=== PATIENT | female | born 1970 | race Caucasian/White ===

== ENCOUNTER → 2019-10-24 06:45 | Outpatient (CLI) | payer OTHER, SELFPAY ==
--- NOTE | 2019-10-24 06:47 | CT_ITS ---
STUDY: CT ABDOMEN AND PELVIS WITHOUT CONTRAST REASON FOR EXAM: Female, 49 years old. BILAT FLANK PAIN -- ONE EPISODE GROSS HEMATURIA -- HX-KIDNEY STONES RADIATION DOSAGE (If Supplied By Facility): CTDIvol = ( 7.90 ) mGy, DLP = ( 377.06 ) mGycm TECHNIQUE: Transaxial images were obtained from the dome of the diaphragm to the symphysis pubis without oral contrast, and without intravenous contrast. Sagittal and coronal images were reconstructed. Individualized dose optimization techniques were used for this CT. COMPARISON: None. FINDINGS: The visualized lung bases are unremarkable. The visualized portions of the heart are within normal limits. There is decreased attenuation of the liver consistent with steatosis. Hepatomegaly. There are surgical clips in the gallbladder fossa consistent with a prior cholecystectomy. Normal spleen. Normal pancreas. Normal bilateral adrenal glands. Normal right kidney. There is a 5.4 mm calculus at the right ureterovesical junction. Normal left kidney. Normal visualized stomach. Normal small intestine. There are scattered colonic diverticula consistent with diverticulosis. The appendix is visualized and appears normal. Normal abdominal aorta. Normal inferior vena cava. Normal retroperitoneum. Normal urinary bladder. Focal uterine calcification most likely within a fibroid. Normal abdominal wall. Normal osseous structures. CT/Abdomen/Pelvis without Cont IMPRESSION: Hepatomegaly and diffuse fatty fixation of the liver. 5.4 mm calculus at the right ureterovesical junction. Electronically Signed: Warren Carvalho, at 14:12 EST , Service support ,
== END ==
PROVIDERS: Family Provider Nurse Practitioner Primary Care; PCP Nurse Practitioner Primary Care; Referring Provider Nurse Practitioner Adult Health; Visit Provider Nurse Practitioner Adult Health
DX: N20.1 Calculus of ureter (principal); K76.0 Fatty (change of) liver, not elsewhere classified; Z87.442 Personal history of urinary calculi
CPT/HCPCS: 74176

== ENCOUNTER 2019-11-01 05:34 | Day surgery (SDC) | payer OTHER, SELFPAY ==
[2019-11-01] VITALS (7 sets, daily range): BP systolic 138–153; BP diastolic 78–99; PULSE 63–98; RESP 16; TEMP 36.4–36.8; O2SAT 95–100; BMI 28.0
--- NOTE | 2019-11-01 | CALC_PTH ---
PATIENT: NEFTALI DURANT [place] [facility] [place][id number] AGE/SX: 49/F ROOM: RE11/01/[address]: Dr. Donovan Prado MD : 1970 BED: DIS: 11/01/2019 SPEC #: [id number] RECD: 11/01/19 13:32 STATUS: АННА SELENA #: [id number] [place]: 11/01/19 00:[address]: Donovan Prado DEPT: SURGICAL PATHOLOGY RECD BY: Isreal Barboza ENTERED: 11/01/19 13:32 SP TYPE: Calculi OTHR DR: Grace Gamboa, FURNITURE MOVER-C Tissues: CALCULI Procedures: Surgery Specimen Level I HEADER OPERATION: Cysto, ureteroscopy, laser, stent PRE-OP DIAGNOSIS: Abdominal pain TISSUE SUBMITTED: Renal calculi GROSS DIAGNOSIS Renal calculi: Fragments of stone, clinically renal calculi (gross only). SJ:fabrice 11/04/19 COMMENT If chemical analysis is requested on this specimen, please notify the laboratory. GROSS DESCRIPTION Received in fixative is one container labeled with the patient's name and designated renal calculi. The specimen consists of multiple irregular fragments of peterson-brown stone that in aggregate measure 0.3 x 0.3 x 0.1 cm. The specimen is for gross identification and saved for stone analysis if needed. / SJ:fabrice 11/01/19 CPT: 65430
[2019-11-01] MEDS: Lactated Ringers 1,000 ML 100 ML IV (06:26)
[2019-11-01] MEDS: Cefazolin 2 GM in 0.9% Normal Saline 100 ML IV (07:23)
--- NOTE | 2019-11-01 07:27 | PCM.DC.URO ---
Discharge Diet: Light diet - advance as tolerated Discharge Activity: Return to Normal Activity Call your doctor if your incision/area has: Sudden Increased Bleeding Suture Line Care: Avoid Pulling/Pushing, Avoid Pinching/Bending Catheter: Alberts to leg bag, Alberts to large bag Allergies/Adverse Reactions: Allergies amoxicillin trihydrate [From Augmentin] Allergy (Verified 11/01/19 06:15) Hives potassium clavulanate [From Augmentin] Allergy (Verified 11/01/19 06:15) Hives corn Adverse Reaction (Verified 11/01/19 06:15) Rash Medications to take at Discharge Albuterol IH (ProAir) [Proair Hfa] 1 - 2 puff INHALATION Q4H PRN PRN 04/06/15 Atenolol [Tenormin] 25 mg PO QHS 04/06/15 Levothyroxine [Synthroid] 112 mcg PO QHS 04/06/15 Loratadine [Claritin] 10 mg PO DAILY 04/06/15 Ashwaganda 1 cap PO BID 10/28/19 Plexus Multivitamin 1 tab PO BID 10/28/19 Ciprofloxacin [Cipro] 500 mg PO BID #6 tab 11/01/19 Hydrocodone/Acetaminophen [Gravelly 5-325 Tablet] 1 each PO Q4H PRN PRN 5 Days #10 tablet 11/01/19 The following prescriptions were given: Ciprofloxacin [Cipro] 500 mg PO BID #6 tab Transmission Status: Pending to [facility] Hydrocodone/Acetaminophen [Gravelly 5-325 Tablet] 1 each PO Q4H PRN PRN 5 Days #10 tablet PRN Reason: Pain Score 1-10/10 Transmission Status: Sent to [facility] Primary Care Physician: Grace Gamboa NP-C [Primary Care Provider] - Test Results: Test results from this visit will be discussed in further detail at your follow-up appointment, if applicable. Please Follow Up With: Donovan Prado MD When: please call to make an appointment.
--- NOTE | 2019-11-01 08:16 | PCM.OPRPT ---
Report of Operation Date of Procedure: 11/01/19 Pre-Operative Diagnosis: Right ureteral calculi distal Post-Operative Diagnosis: Same Surgery/Procedure Performed:: Cystoscopy, right retrograde pyelogram interpretation fluoroscopic images, balloon dilation of the right ureter, ureteroscopy laser lithotripsy of stone and stent placement on the right side. Extraction of fragments with basket. Description of Surgical Findings:: 49-year-old female was taken back to the operating room at the smooth induction of general anesthesia she was placed in dorsolithotomy position the urethra vaginal area prepped and draped in usual sterile fashion, went into the bladder with a 21 [place] rigid cystourethroscope cannulated the right ureteral orifice advanced a wire up into the kidney we could see a stone next the wire in the distal ureter I then balloon dilated the distal right ureter. I then performed a retrograde pyelogram we could see the stone in the distal right ureter. We left a wire in place I first try to go in with a semirigid ureteroscope she did have a semi-cystocele had to really angulate the ureteroscope quite steeply to try get into the ureter I was not able to get into it so I backed out and put in the balloon dilator again balloon dilated the distal ureter a second time. I then went over the wire with a flexible ureteroscope and was able to get into the ureter and found the stone in the distal ureter but given its location is can be very difficult to do a flexible ureteroscopy so I backed out the ureteroscope left the wire in place and then this time I then went with a semirigid ureteroscope was able to get in the distal ureter and then found the stone and used a 200 ?m laser fiber and laser the stone little tiny pieces and then with a basket I extracted the pieces from the ureter with basket extraction. I then left the wire in place and then over wire advanced a stent over the stent advanced up into the kidney and coiled in the kidney and bladder in good position we left a string but we trimmed the string for length and then I pulled the wire and the stent coiled in the kidney bladder good position the patient's bladder was drained and her anesthesia was reversed so we did a successful laser and extraction of the stone and stuck in the distal ureter and a stent placement along with a balloon dilation. Type of Anesthesia:: General Drains: stetn - Admit VTE Documentation VTE Present on Admission: No VTE Mechan Device Prophylaxis: SCD's
[2019-11-01] MEDS: HYDROcodone Bitartrate/Apap 5/325 Tablet PO (10:03)
== END 2019-11-01 10:45 | disposition home or self-care (01) ==
LOC: SDC 05:35 → AC 05:37
PROVIDERS: PCP Nurse Practitioner Primary Care; Referring Provider Urology; Visit Provider Urology
PROC: 0TJ98ZZ Inspection of Ureter, Via Natural or Artificial Opening Endoscopic (ICD-10-PCS; CPT 52352; principal; 2019-11-01 07:20)
DX: N20.1 Calculus of ureter (principal); N39.41 Urge incontinence; N81.10 Cystocele, unspecified; I15.9 Secondary hypertension, unspecified; J45.20 Mild intermittent asthma, uncomplicated; E06.9 Thyroiditis, unspecified; K21.9 Gastro-esophageal reflux disease without esophagitis; Z87.442 Personal history of urinary calculi
CPT/HCPCS: 00873; 52356; 76000; 88300; J7120; C1769; C2617; J2405

== ENCOUNTER → 2024-12-20 | Outpatient (CLI) | payer BC, SELFPAY ==
--- NOTE | 2024-12-20 06:54 | CT_ITS ---
EXAM: CT Chest Without Intravenous Contrast CLINICAL INDICATION: TREE-IN-BUD PATTERN, RIGHT HILAR ADENOPATHY, SOB TECHNIQUE: Axial computed tomography images of the chest without intravenous contrast. This CT exam was performed using one or more of the following dose reduction techniques: automated exposure control, adjustment of the mA and/or kV according to patient size, and/or use of iterative reconstruction technique. COMPARISON: CT Chest dated 10/12/2024 FINDINGS: LUNGS AND PLEURAL SPACES: Mild bilateral apical scarring. Mild lung emphysema. No consolidation. No pneumothorax. No significant effusion. HEART: Unremarkable. No cardiomegaly. No significant pericardial effusion. No significant coronary artery calcifications. MEDIASTINUM: A few prominent mediastinal lymph nodes measuring up to 6 mm. BONES/JOINTS: Unremarkable. No acute fracture. No dislocation. SOFT TISSUES: Unremarkable. VASCULATURE: Unremarkable. No thoracic aortic aneurysm. LYMPH NODES: Previously noted tree-in-bud opacities of the right lung has nearly resolved since the prior exam. Hilar lymphadenopathy can not be accurately assessed without IV contrast. LIVER: Fatty liver. GALLBLADDER AND BILE DUCTS: Cholecystectomy. CT/Chest without Contrast IMPRESSION: Previously noted tree-in-bud opacities of the right lung has nearly resolved si nce the prior exam. Hilar lymphadenopathy can not be accurately assessed without IV contrast. Reading Location: [facility]
== END | disposition home or self-care (01) ==
LOC: CT 06:50
PROVIDERS: PCP Nurse Practitioner Primary Care; Referring Provider Nurse Practitioner Family; Visit Provider Nurse Practitioner Family
DX: J18.9 Pneumonia, unspecified organism (principal); J45.909 Unspecified asthma, uncomplicated
CPT/HCPCS: 71250; 94060; 94726; 94729